=== PATIENT | female | born 1970 | race Caucasian/White ===

== ENCOUNTER 2022-01-24 18:04 | Emergency (ER) | payer OTHER ==
[~2022-01-24] VITALS: Ht 162.6 cm; Wt 73.0 kg
[2022-01-24] MEDS ORDERED: CEPH500 PO (19:04)
== END 2022-01-24 19:19 | disposition home or self-care (01) ==
LOC: ER 18:04
DX: L03.116 Cellulitis of left lower limb (principal); Z87.891 Personal history of nicotine dependence
CPT/HCPCS: A9270